=== PATIENT | female | born 1990 | race Caucasian/White ===

== ENCOUNTER 2016-09-02 08:42 | Emergency (ER) | payer MEDICAID ==
[~2016-09-02] VITALS: Ht 160 cm; Wt 113.4 kg
[2016-09-02 08:56] VITALS: BP 138/95
--- NOTE | 2016-09-02 08:59 | NUR ---
Patient ambulated to bed 07.
--- NOTE | 2016-09-02 09:04 | NUR ---
Dr. Summers evaluating patient at bedside.
[2016-09-02 09:28] VITALS: BP 135/98
--- NOTE | 2016-09-02 09:29 | NUR ---
Patient discharged with v/s stable. Written and verbal after care instructions given and explained. Patient alert, oriented and verbalized understanding of instructions. Ambulatory with steady gait. All questions addressed prior to discharge. ID band removed. Patient advised to follow up with PMD. Rx of PREDNISONE AND VALACYCLOVIR given. Patient educated on indication of medication including possible reaction and side effects. Opportunity to ask questions provided and answered.
== END 2016-09-02 09:29 | disposition home or self-care (01) ==
LOC: MED 08:42
DX: G51.0 Bell's palsy (principal); R20.0 Anesthesia of skin
CPT/HCPCS: 99283

== ENCOUNTER 2018-06-01 10:21 | Emergency (ER) | payer SELFPAY ==
[~2018-06-01] VITALS: Ht 162.6 cm; Wt 121.2 kg
[2018-06-01 10:30] VITALS: BP 149/96
[2018-06-01] MEDS ORDERED: KETOROLAC 60 MG/2 ML VIAL IM ONE (10:45)
[2018-06-01] MEDS ORDERED: LIDOCAINE 1% ***ER ONLY *** 10 MG/ML VIAL INJ ONE (10:45)
[2018-06-01] MEDS ORDERED: LIDOCAINE MPF 1% - 5 mL VIAL 5 ML ONE (10:54)
[2018-06-01 12:50] VITALS: BP 142/94
== END 2018-06-01 12:50 | disposition home or self-care (01) ==
LOC: MED 10:21
DX: L02.214 Cutaneous abscess of groin (principal)
CPT/HCPCS: 10060; 81002; 81025; 96372; 99283; J1885; J2001

== ENCOUNTER 2022-11-19 21:11 | Emergency (ER) | payer MEDICAID ==
[~2022-11-19] VITALS: Ht 162.6 cm; Wt 127.0 kg
[2022-11-19 21:45] VITALS: BP 160/90; PULSE 89; RESP 17; TEMP 97.6; O2SAT 97
--- NOTE | 2022-11-19 21:48 | NUR ---
to lobby a/w bed ambulatory
[2022-11-19 22:31] LABS: BASOPHILS % (AUTO) 0.7 % (0.0-2.0); EOSINOPHILS # (AUTO) 0.1 K/uL (0-0.4); EOSINOPHILS % (AUTO) 2.2 % (0.0-4.0); HEMATOCRIT 40.7 % (36-48); HEMOGLOBIN 13.4 g/dL (12.0-16.0); LYMPHOCYTES # (AUTO) 2.3 K/uL (2.5-16.5); LYMPHOCYTES % (AUTO) 40.1 % (20.5-51.1); MEAN CORPUSCULAR HEMOGLOBIN 29 pg (27-31); MEAN CORPUSCULAR HGB CONC 33 g/dL (33-37); MEAN CORPUSCULAR VOLUME 88.8 fL (80-94); MONOCYTES # (AUTO) 0.6 K/uL (0.8-1.0); MONOCYTES % (AUTO) 10.7 % (1.7-9.3); NEUTROPHILS # (AUTO) 2.6 K/uL (1.8-7.7); NEUTROPHILS % (AUTO) 46.3 % (42.2-75.2); PLATELET COUNT (AUTO) 175 K/uL (140-450); RED BLOOD CELL COUNT(AUTO) 4.58 MIL/uL (4.20-5.40); RED CELL DISTRIBUTION WIDTH 13.9 % (11.6-13.7); WHITE BLOOD COUNT (AUTO) 5.6 K/uL (4.8-10.8)
[2022-11-19 22:51] LABS: ALBUMIN 3.4 g/dL (3.4-5.0); ANION GAP 11.2 (8-16); CARBON DIOXIDE 27.2 mmol/L (21-32); CREATININE 0.8 mg/dL (0.6-1.3); POTASSIUM 4.4 mmol/L (3.5-5.1); TOTAL BILIRUBIN 0.2 mg/dL (0.0-1.0)
--- NOTE | 2022-11-19 23:40 | NUR ---
PT TO BED 6
[2022-11-19 23:46] LABS: APPEARANCE,URINE CLEAR (CLEAR); BILIRUBIN,URINE NEGATIVE (NEGATIVE); BLOOD, URINE 3+ (NEGATIVE); COLOR,URINE YELLOW (YELLOW); LEUKOCYTE ESTERASE ,URINE NEGATIVE (NEGATIVE); NITRITE, URINE NEGATIVE (NEGATIVE); UGLUCOSE 3+ (NEGATIVE)
[2022-11-20 00:14] VITALS: O2SAT 97
--- NOTE | 2022-11-20 00:30 | NUR ---
32 Y/O F bib self from home with boyfriend bedside presents with vaginal bleeding xyesterday with some cramping and pressure. pt stated during urination there wa shematuria with clots. pt stated she had some diarrhea denies NV, headaches or ABD pain. pt is A&Ox4, skin intact, ambulatory respirations even and unlabored. pmh- pt denies NKA
--- NOTE | 2022-11-20 00:59 | NUR ---
Ultrasound at bedside.
--- NOTE | 2022-11-20 01:46 | NUR ---
pt ambulatory to restroom with no assistance
--- NOTE | 2022-11-20 04:04 | NUR ---
Patient does not wish to proceed with medical care recommended by Dr. Johnston. Patient given information related to possible complications, up to and including , which could occur as a result of leaving hospital at this time. Patient verbalizes understanding of risks involved leaving against medical advice. Patient has signed AMA form.
--- NOTE | 2022-11-20 04:35 | NUR ---
The patient's care was reviewed and supervised by Beckie Alfaro RN, RN.
== END 2022-11-20 04:04 | disposition left against medical advice (07) ==
LOC: MED 21:11
DX: N93.9 Abnormal uterine and vaginal bleeding, unspecified (principal)
CPT/HCPCS: 36415; 76856; 80053; 81001; 81025; 83690; 85025; 99284; Q0092